=== PATIENT | male | born 1970 ===

== ENCOUNTER → 2019-09-06 | Outpatient (CLI) | payer BC ==
--- NOTE | 2019-09-06 17:11 | KCIC ---
STUDY: MRI of the left wrist without contrast INDICATION: Progressive left wrist pain. COMPARISON: No prior cross-sectional imaging available for review. TECHNIQUE: Multiplanar MR imaging of the left wrist performed without the use of intravenous or intra-articular contrast. FINDINGS: Bones/cartilage: No acute fracture. Carpal alignment is maintained, as is the expected anatomic relationship across the distal radioulnar joint. Prominent cystic changes involving the distal ulna as well as numerous carpal bones but seen to the greatest degree along the volar aspect of the proximal capitate. Only mild surrounding marrow edema. No full-thickness chondral loss appreciated. Ligaments: Heterogeneous but mostly intact dorsal band of the scapholunate. The volar band is intact. Perforation of the membranous component noted. The lunotriquetral ligament complex is intact. Edema along the dorsal more so than volar extrinsic wrist ligaments favored more likely reactive than related to ligamentous injury and intermixed intact ligamentous fibers are still visualized. Musculotendinous: Marked hypertrophic tendinopathy of the extensor carpi ulnaris representing the palpable abnormality. The tendon measures up to 1.6 cm in transverse dimension by 1.9 cm AP and the greatest degree of thickening extends in the craniocaudal dimension by 2.9 cm. Associated ECU tenosynovitis with circumferential tendon sheath fluid seen proximal to the distal ulna on image 24 series 5. The distal aspect of the tendon is seen to attach to the base of the fifth metacarpal. Mild tendon sheath fluid scattered elsewhere such as at the second extensor compartment, image 22 series 5. No additional significant tendinopathy. Muscular bulk is maintained. TFCC: Perforation of the TFC articular disc, image 9 series 8. The dorsal and volar radioulnar ligaments are intact. The radial attachment of the TFCC is intact, image 7 series 8. No findings to suggest acute injury of the foveal and styloid attachments. Miscellaneous: Wrist synovitis with a presumed small amount of free fluid. Distal radioulnar joint effusion/synovitis. Thin dorsal ganglion cyst emanating from the radiocarpal joint. Subcutaneous edema scattered about the wrist most pronounced dorsally and note is also made of subcutaneous edema localized to the lateral aspect of the distal forearm. The median nerve is within normal limits for size and thickness. No evidence for mass effect on the ulnar nerve within Guyon's canal. IMPRESSION: 1. 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 At the level of the distal ulna, the tendon measures approximately 1.6 x 1.9 cm transverse/AP. Associated ECU tenosynovitis as well as overlying subcutaneous edema. The distal aspect of the tendon remains attached to the base of the fifth metacarpal. 2. Multifocal prominent carpal and distal ulnar cystic foci with mild surrounding marrow edema. No full-thickness chondral loss is identified. Also noted is wrist synovitis as well distal radioulnar joint effusion/synovitis. The appearance is nonspecific but correlation for a history of gout or rheumatoid arthritis to account for the constellation of findings is recommended. 3. Scapholunate membranous component perforation. Heterogeneous but mostly intact dorsal band. The volar component is intact. 4. TFC articular disc perforation. The additional TFCC components are intact. Electronically signed by: CHENCHO DE LUNA MD (09/06/2019 5:08 PM) [id number]
== END | disposition home or self-care (01) ==
LOC: KCIC MRI 15:03
PROVIDERS: ATTEND Internal Medicine
DX: M67.432 Ganglion, left wrist (principal); M25.832 Other specified joint disorders, left wrist
CPT/HCPCS: 73221